=== PATIENT | female | born 1965 | race African-American/Black ===

== ENCOUNTER 2018-01-17 16:00 | Emergency (ER) | payer MEDICAID ==
[~2018-01-17] VITALS: Ht 170.2 cm; Wt 83.0 kg
[2018-01-17 16:00] VITALS: BP 137/79
[~2018-01-17 16:00] MED LIST: ATEN100T PO
[2018-01-17] MEDS ORDERED: HYDROCODONE/APAP 5/325MG 1 EACH TABLET ONE (19:46)
[2018-01-17] MEDS ORDERED: HYDROCODONE/APAP 5/325MG 1 EACH TABLET PO ONE (20:00)
== END 2018-01-17 17:38 | disposition home or self-care (01) ==
LOC: ER 16:01
DX: S80.01XA Contusion of right knee, initial encounter (principal); S90.31XA Contusion of right foot, initial encounter; I10 Essential (primary) hypertension; Z98.890 Other specified postprocedural states; Z79.899 Other long term (current) drug therapy; W01.0XXA Fall on same level from slipping, tripping and stumbling without subsequent striking against object, initial encounter; Y93.01 Activity, walking, marching and hiking; Y92.89 Other specified places as the place of occurrence of the external cause; Y99.8 Other external cause status
CPT/HCPCS: 73564-TC; 73630-TC; A4606; Z7610